=== PATIENT | male | born 1955 | race Hispanic/Latino ===

== ENCOUNTER 2018-10-12 12:39 | Day surgery (SDC) | payer BC ==
[2018-10-12] MEDS ORDERED: XYLOCAINE MPF 2% ONE (13:13)
[2018-10-12] MEDS ORDERED: SUBLIMAZE ONE (13:13)
[2018-10-12] MEDS ORDERED: DIPRIVAN 10 MG/ML IV ONE (13:13)
--- NOTE | 2018-10-12 13:41 | Anesthesia Consultation ---
Anesthesia Consult and Med Hx Date of service: 10/12/18 - Airway Anesthetic Teeth Evaluation: Good ROM Head & Neck: Adequate Mental/Hyoid Distance: Adequate Mallampati Class: Class II Intubation Access Assessment: Probably Good - Pulmonary Exam CTA: Yes - Cardiac Exam Cardiac Exam: RRR - Pre-Operative Health Status ASA Pre-Surgery Classification: ASA2 Proposed Anesthetic Plan: General - Pulmonary Hx Smoking: No Hx Asthma: No - Cardiovascular System Hx Hypertension: No Hx Heart Attack/AMI: No - Central Nervous System Hx Psychiatric Problems: Yes (Attention Deficit Disorder (ADD)) - Gastrointestinal Hx Gastroesophageal Reflux Disease: No - Endocrine Hx Renal Disease: Yes (Renal calculi) Hx End Stage Renal Disease: No - Hematic Hx Anemia: No - Other Systems Hx Alcohol Use: No Hx Substance Use: No Hx Obesity: No - Additional Comments Anesthesia Medical History Comments: No GAC, No FHAC
[2018-10-12] MEDS ORDERED: VERSED IV NR (14:00)
[2018-10-12] MEDS ORDERED: LACTATED RINGERS 1,000 ML IV SCH (14:00)
[2018-10-12] MEDS ORDERED: ANCEF/STERILE WATER 2 GM/20 ML IV NR (14:00)
--- NOTE | 2018-10-12 16:04 | Short Stay Summary ---
Short Stay Documentation Date of service: 10/12/18 - History H&P: obtained from office - Allergies and Medications Current Medications: Allergies No Known Allergies Allergy (Unverified 10/12/18 13:20) Home Medications Medication Instructions Recorded Confirmed Last Taken Type Adderall 10 mg Tablet 10 mg PO BID 10/12/18 10/12/18 10/11/18 09:00 History Ciprofloxacin HCl [Ciprofloxacin 500 mg PO BID 10/12/18 10/12/18 10/12/18 07:00 History TAB] Divalproex Sodium [Depakote] 500 mg PO DAILY 10/12/18 10/12/18 10/11/18 17:00 History Effexor 25mg tab 25 mg PO DAILY 10/12/18 10/12/18 10/11/18 21:00 History Hydrocodone-Acetamin 7.5-300 7.5 mg PO Q6HR 10/12/18 10/12/18 10/11/18 09:00 History Active Medications Cefazolin Sodium (Ancef/Sterile Water 2 Gm/20 Ml) 2 gm IV PREOP NR Stop: 10/12/18 23:59 Lactated Ringer's (Lactated Ringers) 1,000 mls @ 75 mls/hr IV DIRECT ANIL Last Admin: 10/12/18 13:30 Dose: 75 mls/hr Documented by: Midazolam HCl (Versed) 2 mg IV PREOP NR Stop: 10/12/18 23:59 Last Admin: 10/12/18 13:52 Dose: 2 mg Documented by: - Brief post op/procedure progress note Date of procedure: 10/12/18 Pre-op diagnosis: rt hydronephrosis Post-op diagnosis: other (prox ureteral stricture) Procedure: cysto, rpg, rt ureteroscpy stent, internal stricture, balloon stricture Anesthesia: GETA Surgeon: MAVIS SAUCEDO Estimated blood loss: none Condition: stable - Hospital course Hospital course: pt has pain meds, cipro & pain mgmt consult on chart has brochure, & post op info - Disposition Condition at discharge: Stable Short Stay Discharge Plan Follow up with: PRIMARY CARE, [Primary Care Provider] - 7 Days
[2018-10-12] MEDS ORDERED: ZOFRAN IV PRN (16:35)
[2018-10-12] MEDS ORDERED: DILAUDID IV PRN (16:35)
[2018-10-12] MEDS ORDERED: APRESOLINE IV PRN (16:36)
--- NOTE | 2018-10-12 17:10 | Operative Report ---
PREOPERATIVE DIAGNOSIS: Right hydronephrosis. POSTOPERATIVE DIAGNOSIS: Right hydronephrosis. Proximal ureteral stricture. PROCEDURE PERFORMED: Cystoscopy, bilateral retrograde pyelograms, right ureteroscopy, balloon dilatation of stricture, double-J stent (4.8 [place] x 24 cm with an internal string). SURGEON: Primo White MD ANESTHESIA: General. ESTIMATED BLOOD LOSS: Minimal. FLUIDS: Crystalloid. COMPLICATIONS: No complications. INDICATIONS: This patient is a 63-year-old gentleman previously seen in the [facility] presented with right flank pain. CT of abdomen and pelvis revealed a right hydronephrosis, punctate renal stones bilaterally; however, appears to be hydronephrosis due to a stricture. The patient states his son had UPJ obstruction at age 4. Right-sided pain, so he presents for this surgical intervention. Also, of note, he has a cervical spine stenosis requiring chronic pain therapy. He was given consult to [facility] [phone]. DESCRIPTION OF PROCEDURE: The patient was taken to the operative suite, placed in a supine position. After adequate general anesthesia, placed in a dorsal lithotomy position, prepped and draped in a sterile fashion. Pancystourethroscopy was performed on a 22-Citizen [place] Storz cystoscope, no urethral abnormalities. His prostate displayed some [id number] trilobar obstruction. Bladder, no tumors or stones were noted. Bilateral retrograde pyelograms were obtained with an 8 [place]ue catheter and 8 mL of contrast. No filling defects or obstruction on the left. Right side, obvious proximal stricture with hydronephrosis, normal caliber distal ureter. Two 0.035 Glidewires were placed. Rigid ureteroscopy up to the UPJ. There was a stenosis there, could not advance the scope. Balloon was advanced, mid proximal ureter appeared to dilate some of the stricture; however, I did not want to advance too hard, therefore I elected to remove the balloon put up by 4.8 x 24 cm stent with an internal string. Fluoroscopy confirmed adequate position. Rectal exam was benign. He was extubated and taken to recovery room. He will go home on Cipro. He has pain management consult. JOB# [id number] [facility]
--- NOTE | 2018-10-12 18:16 | Post Anesthesia Evaluation ---
- Post Anesthesia Evaluation Patient Participated: Yes Airway Patent: Yes Stable Respiratory Function: Yes Nausea/Vomiting: No Temp > 96.8F: Yes Pain Manageable: Yes Adequeate Hydration: Yes Anesthesia Complications: No
--- NOTE | 2018-10-12 18:16 | Anesthesia Day of Surgery ---
Anesthesia Day of Surgery - Day of Surgery Patient Examined: Yes Patient H&P Reviewed: Yes Patient is NPO: Yes
[2018-10-12 18:25] VITALS: BP 159/86
--- NOTE | 2018-10-13 07:38 | Fluoroscopy Report ---
Retrograde pyelogram and right ureteral dilatation: The initial image of the abdomen is partially compromised by overlying bowel gas. Injection of contrast into the left ureter and intrarenal collecting system demonstrates mild proximal spasticity of the ureter but the findings are not otherwise remarkable. Injection of contrast into the right ureter demonstrates a normal ureter to the UPJ which appears narrowed with proximal faint opacification of a markedly dilated intrarenal collecting system. A ureteroscope was passed into the mid ureter with 2 wires placed into the renal collecting system. By history the right ureter presumably at the UPJ was dilated. No images include. A right nephroureteral stent was left in good position. Impression: Right UPJ stenosis.
== END 2018-10-12 18:20 | disposition home or self-care (01) ==
LOC: OR 12:39
PROVIDERS: ATTEND Urology
DX: N13.1 Hydronephrosis with ureteral stricture, not elsewhere classified (principal); F98.8 Other specified behavioral and emotional disorders with onset usually occurring in childhood and adolescence; Z79.899 Other long term (current) drug therapy; Z98.52 Vasectomy status; Z98.890 Other specified postprocedural states
CPT/HCPCS: 52332; 52344; 74420; 74485; 82803; C1726; C1758; C1769; C2617; J0360; J0690; J1170; J2250; J2704; J3010; J7120; Q9967